=== PATIENT | male | born 1955 | race Hispanic/Latino ===

== ENCOUNTER → 2018-06-01 | Outpatient (CLI) | payer MEDICARE ==
--- NOTE | 2018-06-01 09:42 | Diagnostic Imaging Report ---
PROCEDURE: CT CHEST WITHOUT CONTRAST CT scan of the chest WITHOUT intravenous contrast, using low dose nodule protocol. TECHNIQUE: The chest was scanned utilizing a multidetector helical scanner from the apex to the level of the adrenal glands. Coronal and sagittal multiplanar reformations were obtained. DLP: 217.13 mGy-cm COMPARISON: None. INDICATIONS: SMOKER FINDINGS: Lines/tubes: None. Lungs and Airways: Mild emphysematous changes. No nodules or masses. Left lower lobe calcified granuloma Pleura: The pleural spaces are clear. Heart and mediastinum: The thyroid gland is normal. No significant mediastinal, hilar or axillary lymphadenopathy is seen. The heart and pericardium are within normal limits. Coronary artery, aortic valve and thoracic aortic calcification. Soft tissues: Normal. Abdomen: Limited views of the upper abdomen show no abnormality within the visualized liver, spleen, pancreas, or kidneys. The adrenal glands are normal. Bones: Mild degenerative changes of the spine. IMPRESSION: 1. Mild emphysematous changes. 2. No nodules or masses. Colin Mcogwan D.O. Dictated by: Colin Mcgowan D.O. on 06/01/2018 at 9:09 Electronically approved by: Colin Mcgowan D.O. on 06/01/2018 at 9:09
== END ==
LOC: CT 07:29
PROVIDERS: ATTEND Family Medicine
DX: F17.210 Nicotine dependence, cigarettes, uncomplicated (principal)
CPT/HCPCS: 71250